=== PATIENT | female | born 1960 | race African-American/Black ===

== ENCOUNTER 2019-01-08 08:32 | Emergency (ER) | payer OTHER ==
[~2019-01-08] VITALS: Ht 170.2 cm; Wt 95.3 kg
[~2019-01-08 08:32] MED LIST: AMLO10TA8 PO; ASPI-630 PO; ATOR40TA PO; CICL6.6S3 TP; ISOS30TA4 PO; LOSA1TAB22 PO; METO25TA2 PO; PREG100C PO
[2019-01-08 08:54] LABS: BASO % 1 % (0-3); EOS # 0.3 x10^3/uL (0.0-0.7); EOS % 5 % (0-3); HEMATOCRIT 35.9 % (36.0-47.0); HEMOGLOBIN 11.2 g/dL (12.0-15.5); LYMPH # 1.9 x10^3/uL (1.0-4.8); LYMPH % 33 % (24-48); MEAN CORPUSCULAR HEMOGLOBIN 21 pg (25-35); MEAN CORPUSCULAR HGB CONC 31 g/dL (31-37); MEAN CORPUSCULAR VOLUME 66 fL (79-100); MONO # 0.6 x10^3/uL (0.0-1.1); MONO % 11 % (0-9); NEUT % 50 % (31-73); PLATELET COUNT 245 x10^3/uL (140-400); RED BLOOD COUNT 5.47 x10^6/uL (3.50-5.40); RED CELL DISTRIBUTION WIDTH 18.6 % (11.5-14.5); WHITE BLOOD COUNT 5.9 x10^3/uL (4.0-11.0)
[2019-01-08] MEDS ORDERED: NITROGLYCERIN SUBLINGUAL 0.4 MG BOTTLE OF 25. SL PRN ×2 (09:00→10:00)
[2019-01-08 09:01] LABS: CALCIUM 9.5 mg/dL (8.5-10.1); GFR 68.7; POTASSIUM 3.7 mmol/L (3.5-5.1)
[2019-01-08 09:07] LABS: ALBUMIN 3.9 g/dL (3.4-5.0); TOTAL BILIRUBIN 0.3 mg/dL (0.2-1.0); TOTAL PROTEIN 7.9 g/dL (6.4-8.2)
--- NOTE | 2019-01-08 09:17 | RAD ---
Exam performed: One view chest. Indication: Chest pain since this morning Date of Service: 01/08/2019 8:36 AM Comparison: CT angiogram chest from December 20, 2018. Single AP upright portable view chest findings: Cardiomediastinal silhouette is enlarged, however stable. No acute infiltrates, effusion or pneumothorax is detected. The bony structures are normal. Impression: Stable cardiomegaly No acute pulmonary findings detected. Electronically signed by: Nikki Savage MD (01/08/2019 9:14 AM) [facility]
[2019-01-08 09:19] LABS: PLT ESTIMATE ADEQUATE (ADEQUATE)
[2019-01-08 09:20] LABS: ANISOCYTOSIS MOD; HYPOCHROMIA MOD; POIKILOCYTOSIS SLIGHT; POLYCHROMASIA OCCASIONAL
[2019-01-08 09:21] LABS: MICROCYTOSIS MOD; OVALOCYTES FEW
[2019-01-08] MEDS ORDERED: KETOROLAC 15 MG/ML VIAL. IV ONE (10:00)
[2019-01-08] MEDS ORDERED: LORazepam 0.5 MG TABLET PO ONE (10:45)
[2019-01-08] MEDS ORDERED: ONDANSETRON ODT 4 MG TAB.RAPDIS. PO ONE (11:15)
[2019-01-08] MEDS ORDERED: ISOS60TA2 PO (11:47)
--- NOTE | 2019-01-08 11:48 | PHYS DOC ---
Past Medical History Past Medical History: Cancer, Hypertension, [place] Additional Past Medical Histor: heart cath used right wrist. Past Surgical History: , Hysterectomy Additional Past Surgical Histo: R breast lumpectomy [place] 2005. Alcohol Use: Occasionally Drug Use: None Adult General Chief Complaint Chief Complaint: CHEST PAIN HPI HPI Patient is a 58 year old [place] female with history of CAD with heart catheterization 2 weeks ago revealing single-vessel coronary disease with chronic total occlusion of right coronary artery presents with atypical chest pain. No interventions were undertaken and medical management was recommended. Current chest pain is left-sided described a pressure-like and worse with deep breathing. Patient took long-acting nitroglycerin and this morning with some improvement of symptoms. Patient also reports feeling anxious. Blood pressure noted be elevated. Patient did take blood pressure medication as well this morning. Pain is nonradiating. It is not associated nausea shortness of breath or sweats. No abdominal pain. No leg pain or swelling. No other acute symptoms or complaints. [] Review of Systems Review of Systems Review of symptoms as per history of present illness. All other review symptoms are negative. All other systems were reviewed and found to be within normal limits, except as documented in this note. Current Medications Current Medications Current Medications Medications (Trade) Dose Ordered Sig/Hank Start Time Stop Time Status Last Admin Dose Admin Ketorolac Tromethamine (Toradol 15mg Vial) 30 mg 1X ONCE 01/08/19 10:00 01/08/19 10:01 DC 01/08/19 10:17 30 MG Lorazepam (Ativan) 1 mg 1X ONCE 01/08/19 10:45 01/08/19 10:48 DC 01/08/19 11:28 1 MG Nitroglycerin (Nitrostat) 0.4 mg PRN Q5MIN PRN 01/08/19 10:00 Ondansetron HCl (Zofran Odt) 4 mg 1X ONCE 01/08/19 11:15 01/08/19 11:26 DC Allergies Allergies Allergies Coded Allergies Type Severity Reaction Last Updated Verified Penicillins Allergy Intermediate Hives 12/21/18 Yes Physical Exam Physical Exam Constitutional: Well developed, well nourished, no acute distress, non-toxic appearance. [] HENT: Normocephalic, atraumatic, bilateral external ears normal, oropharynx moist, nose normal. [] Eyes: PERRLA, EOMI. [] Neck: Normal range of motion, no tenderness. [] Cardiovascular:Heart rate regular rhythm. [] Lungs & Thorax: Bilateral breath sounds clear to auscultation. [] Abdomen: Bowel sounds normal, soft, no tenderness. [] Skin: Warm, dry, no erythema. [] Back: No tenderness. [] Extremities: No tenderness, no edema. [] Neurologic: Alert and oriented X 3, normal motor function, normal sensory function, no focal deficits noted. [] Psychologic: Affect anxious, judgement normal, mood normal. [] Current Patient Data Vital Signs Vital Signs Date Time Temp Pulse Resp B/P (MAP) Pulse Ox O2 Delivery O2 Flow Rate FiO2 01/08/19 09:05 80 145/83 01/08/19 09:05 24 97 Room Air 01/08/19 08:32 98.4 98.4 Lab Values Laboratory Tests Test 01/08/19 08:40 01/08/19 10:35 White Blood Count 5.9 x10^3/uL (4.0-11.0) Red Blood Count 5.47 x10^6/uL (3.50-5.40) H Hemoglobin 11.2 g/dL (12.0-15.5) L Hematocrit 35.9 % (36.0-47.0) L Mean Corpuscular Volume 66 fL (79-100) L Mean Corpuscular Hemoglobin 21 pg (25-35) L Mean Corpuscular Hemoglobin Concent 31 g/dL (31-37) Red Cell Distribution Width 18.6 % (11.5-14.5) H Platelet Count 245 x10^3/uL (140-400) Neutrophils (%) (Auto) 50 % (31-73) Lymphocytes (%) (Auto) 33 % (24-48) Monocytes (%) (Auto) 11 % (0-9) H Eosinophils (%) (Auto) 5 % (0-3) H Basophils (%) (Auto) 1 % (0-3) Neutrophils # (Auto) 3.0 x10^3uL (1.8-7.7) Lymphocytes # (Auto) 1.9 x10^3/uL (1.0-4.8) Monocytes # (Auto) 0.6 x10^3/uL (0.0-1.1) Eosinophils # (Auto) 0.3 x10^3/uL (0.0-0.7) Basophils # (Auto) 0.0 x10^3/uL (0.0-0.2) Platelet Estimate Adequate (ADEQUATE) Polychromasia Occasional Hypochromasia Mod Poikilocytosis Slight Anisocytosis Mod Microcytosis Mod Ovalocytes Few Sodium Level 138 mmol/L (136-145) Potassium Level 3.7 mmol/L (3.5-5.1) Chloride Level 101 mmol/L (98-107) Carbon Dioxide Level 30 mmol/L (21-32) Anion Gap 7 (6-14) Blood Urea Nitrogen 20 mg/dL (7-20) Creatinine 1.0 mg/dL (0.6-1.0) Estimated GFR (Cockcroft-Gault) 68.7 BUN/Creatinine Ratio 20 (6-20) Glucose Level 303 mg/dL (70-99) H Calcium Level 9.5 mg/dL (8.5-10.1) Total Bilirubin 0.3 mg/dL (0.2-1.0) Aspartate Amino Transferase (AST) 25 U/L (15-37) Alanine Aminotransferase (ALT) 28 U/L (14-59) Alkaline Phosphatase 61 U/L (46-116) Troponin I Quantitative 0.075 ng/mL (0.000-0.055) 0.075 ng/mL (0.000-0.055) Total Protein 7.9 g/dL (6.4-8.2) Albumin 3.9 g/dL (3.4-5.0) Albumin/Globulin Ratio 1.0 (1.0-1.7) Laboratory Tests 01/08/19 08:40 Laboratory Tests 01/08/19 08:40 EKG EKG [EKG: reviewed] Radiology/Procedures Radiology/Procedures [CXR: No acute cardiopulmonary disease on radiologist review] Course & Med Decision Making Course & Med Decision Making Pertinent Labs and Imaging studies reviewed. (See chart for details) [Atypical chest pain with recent heart catheterization chronic stable single- vessel coronary disease. EKG lab and imaging studies performed. Despite 4 hours of continuous chest pain, troponin remains minimally elevated and unchanged on repeat to her testing. Chest pain resolved with Ativan. Case discussed with Dr. Aguirre or on-call for cardiology. Recommendations are discharged home, increase isosorbide and office follow-up later this week. Recommendations discussed in detail with patient is comfortable with discharge plan. Return precautions reviewed.] Dragon Disclaimer Dragon Disclaimer This electronic medical record was generated, in whole or in part, using a voice recognition dictation system. Departure Departure Impression: Primary Impression: Chest pain Additional Impressions: Hypertension CAD (coronary artery disease) Disposition: HOME, SELF-CARE Condition: IMPROVED Referrals: DANNY TINAJERO JR, MD (PCP) Patient Instructions: Chest Pain (Nonspecific), [id number], Hypertension, [id number] Additional Instructions: Please increase isosorbide to 60mg daily and continue all other home medications as scheduled. Follow-up with Dr. Aguirre in the office later this week. Return to the ED if new or worsening symptoms. Scripts Isosorbide Mononitrate (ISOSORBIDE MONONITRATE ER) 60 Mg Tab.er.24h 1 TAB PO DAILY, #30 TAB 5 Refills Prov: EZRA DAVIS DO 01/08/19 Problem Qualifiers EZRA DAVIS DO Jan 08, 2019 11:48
[2019-01-08 12:00] VITALS: BP 143/88
--- NOTE | 2019-01-09 08:28 | EKG ---
[facility] [address] [place] [address] Test Date: 2019-01-08 Test Time: 08:39:35 Pat Name: JAIME PINON Department: Patient ID: 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
== END 2019-01-08 12:05 | disposition home or self-care (01) ==
LOC: ER 08:32
DX: R07.89 Other chest pain (principal); I10 Essential (primary) hypertension; I25.10 Atherosclerotic heart disease of native coronary artery without angina pectoris; I25.2 Old myocardial infarction; Z95.818 Presence of other cardiac implants and grafts; Z88.0 Allergy status to penicillin
CPT/HCPCS: 36415; 71045; 80053; 84484; 85025; 93005; 96374; 99285; J1885; Q0162

== ENCOUNTER 2019-03-30 04:15 | Observation (INO) | payer OTHER ==
[~2019-03-30] VITALS: Ht 167.6 cm; Wt 92.1 kg
[~2019-03-30 04:15] MED LIST changes: +ISOS60TA2 PO
[2019-03-30 04:36] LABS: BASO % 1 % (0-3); EOS # 0.6 x10^3/uL (0.0-0.7); EOS % 12 % (0-3); HEMATOCRIT 33.4 % (36.0-47.0); HEMOGLOBIN 10.6 g/dL (12.0-15.5); LYMPH # 1.7 x10^3/uL (1.0-4.8); LYMPH % 32 % (24-48); MEAN CORPUSCULAR HEMOGLOBIN 21 pg (25-35); MEAN CORPUSCULAR HGB CONC 32 g/dL (31-37); MEAN CORPUSCULAR VOLUME 65 fL (79-100); MONO # 0.7 x10^3/uL (0.0-1.1); MONO % 13 % (0-9); NEUT # 2.2 x10^3/uL (1.8-7.7); NEUT % 43 % (31-73); PLATELET COUNT 248 x10^3/uL (140-400); RED BLOOD COUNT 5.16 x10^6/uL (3.50-5.40); RED CELL DISTRIBUTION WIDTH 20.8 % (11.5-14.5); WHITE BLOOD COUNT 5.2 x10^3/uL (4.0-11.0)
--- NOTE | 2019-03-30 04:36 | PHYS DOC ---
Past Medical History Past Medical History: Cancer, Hypertension, [place] Additional Past Medical Histor: heart cath used right wrist. (NATE DICKINSON MD) Past Surgical History: , Hysterectomy Additional Past Surgical Histo: R breast lumpectomy [place] 2005. (NATE DICKINSON MD) Alcohol Use: Occasionally Drug Use: None (NATE DICKINSON MD) Adult General Chief Complaint Chief Complaint: CHEST PAIN HPI HPI Patient is a 59 year ol female history of hypertension coronary artery disease status post a catheter in December 2018 that showed a chronic total occlusion of the right coronary artery with collaterals noted no intervention was performed present with chest discomfort described as sharp she says it is "behind my heart" radiates over to the side but not to the back not to the arm no shortness of breath no nausea or vomiting noted. Symptoms are moderate in nature received nitroglycerin with some improvement in the symptoms but they are still present symptoms present for approximately one hour. No leg pain no abdominal pain (NATE DICKINSON MD) Review of Systems Review of Systems Constitutional: Denies fever or chills [] Eyes: Denies change in visual acuity, redness, or eye pain [] HENT: Denies nasal congestion or sore throat [] GI: Denies abdominal pain, nausea, vomiting, bloody stools or diarrhea [] Neurologic: Denies headache, focal weakness or sensory changes [] Endocrine: Denies polyuria or polydipsia [] All other systems were reviewed and found to be within normal limits, except as documented in this note. (NATE DICKINSON MD) Current Medications Current Medications Current Medications Medications (Trade) Dose Ordered Sig/Hank Start Time Stop Time Status Last Admin Dose Admin Aspirin (Children'S Aspirin) 324 mg 1X ONCE 03/30/19 05:00 03/30/19 05:01 DC Nitroglycerin (Nitrostat) 0.4 mg PRN Q5MIN PRN 03/30/19 04:45 03/30/19 05:06 0.4 MG Potassium Chloride (Klor-Con) 40 meq 1X ONCE 03/30/19 06:30 03/30/19 06:31 DC 03/30/19 06:16 40 MEQ (ARTIS FERNANDEZ MD) Allergies Allergies Allergies Coded Allergies Type Severity Reaction Last Updated Verified Penicillins Allergy Intermediate Hives 12/21/18 Yes (ARTIS FERNANDEZ MD) Physical Exam Physical Exam Constitutional: Well developed, well nourished, no acute distress, non-toxic appearance. [] HENT: Normocephalic, atraumatic, bilateral external ears normal, oropharynx moist, no oral exudates, nose normal. [] Eyes: PERRLA, EOMI, conjunctiva normal, no discharge. [] Neck: Normal range of motion, no tenderness, supple, no stridor. [] Cardiovascular:Heart rate regular rhythm, no murmur [] Lungs & Thorax: Bilateral breath sounds clear to auscultation [] Abdomen: Bowel sounds normal, soft, no tenderness, no masses, no pulsatile masses. [] Skin: Warm, dry, no erythema, no rash. [] Back: No tenderness, no CVA tenderness. [] Extremities: No tenderness, no cyanosis, no clubbing, ROM intact, no edema. [] Neurologic: Alert and oriented X 3, normal motor function, normal sensory function, no focal deficits noted. [] Psychologic: Affect normal, judgement normal, mood normal. [] (NATE DICKINSON MD) Current Patient Data Vital Signs Vital Signs Date Time Temp Pulse Resp B/P (MAP) Pulse Ox O2 Delivery O2 Flow Rate FiO2 03/30/19 07:12 70 23 156/92 (113) 93 Room Air 03/30/19 04:36 98.3 98.3 (ARTIS FERNANDEZ MD) Lab Values Laboratory Tests Test 03/30/19 04:25 03/30/19 07:10 White Blood Count 5.2 x10^3/uL (4.0-11.0) Red Blood Count 5.16 x10^6/uL (3.50-5.40) Hemoglobin 10.6 g/dL (12.0-15.5) L Hematocrit 33.4 % (36.0-47.0) L Mean Corpuscular Volume 65 fL (79-100) L Mean Corpuscular Hemoglobin 21 pg (25-35) L Mean Corpuscular Hemoglobin Concent 32 g/dL (31-37) Red Cell Distribution Width 20.8 % (11.5-14.5) H Platelet Count 248 x10^3/uL (140-400) Neutrophils (%) (Auto) 43 % (31-73) Lymphocytes (%) (Auto) 32 % (24-48) Monocytes (%) (Auto) 13 % (0-9) H Eosinophils (%) (Auto) 12 % (0-3) H Basophils (%) (Auto) 1 % (0-3) Neutrophils # (Auto) 2.2 x10^3/uL (1.8-7.7) Lymphocytes # (Auto) 1.7 x10^3/uL (1.0-4.8) Monocytes # (Auto) 0.7 x10^3/uL (0.0-1.1) Eosinophils # (Auto) 0.6 x10^3/uL (0.0-0.7) Basophils # (Auto) 0.0 x10^3/uL (0.0-0.2) Platelet Estimate Adequate (ADEQUATE) Hypochromasia Marked Anisocytosis Mod Microcytosis Mod Ovalocytes Occ Sodium Level 144 mmol/L (136-145) Potassium Level 3.3 mmol/L (3.5-5.1) L Chloride Level 107 mmol/L (98-107) Carbon Dioxide Level 30 mmol/L (21-32) Anion Gap 7 (6-14) Blood Urea Nitrogen 23 mg/dL (7-20) H Creatinine 1.1 mg/dL (0.6-1.0) H Estimated GFR (Cockcroft-Gault) 61.3 BUN/Creatinine Ratio 21 (6-20) H Glucose Level 169 mg/dL (70-99) H Calcium Level 9.6 mg/dL (8.5-10.1) Total Bilirubin 0.3 mg/dL (0.2-1.0) Aspartate Amino Transferase (AST) 23 U/L (15-37) Alanine Aminotransferase (ALT) 20 U/L (14-59) Alkaline Phosphatase 64 U/L (46-116) Troponin I Quantitative 0.017 ng/mL (0.000-0.055) < 0.017 ng/mL (0.000-0.055) Total Protein 7.6 g/dL (6.4-8.2) Albumin 3.7 g/dL (3.4-5.0) Albumin/Globulin Ratio 0.9 (1.0-1.7) L Laboratory Tests 03/30/19 04:25 Laboratory Tests 03/30/19 04:25 (ATRIS FERNANDEZ MD) Lab Values Laboratory Tests Test 03/30/19 04:25 03/30/19 07:10 White Blood Count 5.2 x10^3/uL (4.0-11.0) Red Blood Count 5.16 x10^6/uL (3.50-5.40) Hemoglobin 10.6 g/dL (12.0-15.5) L Hematocrit 33.4 % (36.0-47.0) L Mean Corpuscular Volume 65 fL (79-100) L Mean Corpuscular Hemoglobin 21 pg (25-35) L Mean Corpuscular Hemoglobin Concent 32 g/dL (31-37) Red Cell Distribution Width 20.8 % (11.5-14.5) H Platelet Count 248 x10^3/uL (140-400) Neutrophils (%) (Auto) 43 % (31-73) Lymphocytes (%) (Auto) 32 % (24-48) Monocytes (%) (Auto) 13 % (0-9) H Eosinophils (%) (Auto) 12 % (0-3) H Basophils (%) (Auto) 1 % (0-3) Neutrophils # (Auto) 2.2 x10^3/uL (1.8-7.7) Lymphocytes # (Auto) 1.7 x10^3/uL (1.0-4.8) Monocytes # (Auto) 0.7 x10^3/uL (0.0-1.1) Eosinophils # (Auto) 0.6 x10^3/uL (0.0-0.7) Basophils # (Auto) 0.0 x10^3/uL (0.0-0.2) Platelet Estimate Adequate (ADEQUATE) Hypochromasia Marked Anisocytosis Mod Microcytosis Mod Ovalocytes Occ D-Dimer (Priya) 0.83 ug/mlFEU (0.00-0.50) H Sodium Level 144 mmol/L (136-145) Potassium Level 3.3 mmol/L (3.5-5.1) L Chloride Level 107 mmol/L (98-107) Carbon Dioxide Level 30 mmol/L (21-32) Anion Gap 7 (6-14) Blood Urea Nitrogen 23 mg/dL (7-20) H Creatinine 1.1 mg/dL (0.6-1.0) H Estimated GFR (Cockcroft-Gault) 61.3 BUN/Creatinine Ratio 21 (6-20) H Glucose Level 169 mg/dL (70-99) H Calcium Level 9.6 mg/dL (8.5-10.1) Total Bilirubin 0.3 mg/dL (0.2-1.0) Aspartate Amino Transferase (AST) 23 U/L (15-37) Alanine Aminotransferase (ALT) 20 U/L (14-59) Alkaline Phosphatase 64 U/L (46-116) Troponin I Quantitative 0.017 ng/mL (0.000-0.055) < 0.017 ng/mL (0.000-0.055) Total Protein 7.6 g/dL (6.4-8.2) Albumin 3.7 g/dL (3.4-5.0) Albumin/Globulin Ratio 0.9 (1.0-1.7) L Laboratory Tests 03/30/19 04:25 Laboratory Tests 03/30/19 04:25 (NATE DICKINSON MD) EKG EKG []EKG shows a sinus rhythm rate of [address] elevation in lead 3 only but there are also Q waves in that lead and this morphology is very similar to January 08, [address] elevation was noted PVC noted (NATE DICKINSON MD) Radiology/Procedures Radiology/Procedures [] (NATE DICKINSON MD) Radiology/Procedures PROCEDURE: PORTABLE CHEST 1V EXAM: CHEST 1 VIEW History: Chest pain COMPARISON: None available. TECHNIQUE: Single portable radiograph of the chest FINDINGS: The cardiac silhouette is unremarkable. Minimal bibasilar lung airspace opacities likely atelectasis or infiltrates. The costophrenic sulci are clear and well demarcated. IMPRESSION: Minimal bibasilar lung airspace opacities likely atelectasis or infiltrates. (ARTIS FERNANDEZ MD) Course & Med Decision Making Course & Med Decision Making Pertinent Labs and Imaging studies reviewed. (See chart for details) []Well-appearing 59-year-old female with a recent catheterization that showed a chronic total occlusion of the right coronary with no intervention presenting with chest pain somewhat atypical component in nature at this point plan for serial troponins nitroglycerin aspirin as needed and go from there. afte her nitro pt feeling much better, reproducible sypmtoms on examination of chest wall. plan for second troponin at 7 am, s/o mckenzie (NATE DICKINSON MD) Course & Med Decision Making 8:10 AM: The patient's condition remains stable. I discussed test results with the patient in detail, along with a local clinical suspicion for cardiac etiolo gy to her symptoms, however the patient states she feels too ill and is still having chest pain (which has been waxing and waning since she arrived in the emergency department), to go home. Thus, I spoke with the hospitalist, who graciously agreed to admit the patient for further evaluation. (ARTIS FERNANDEZ MD) Dragon Disclaimer Dragon Disclaimer This electronic medical record was generated, in whole or in part, using a voice recognition dictation system. (NATE DICKINSON MD) Departure Departure Impression: Primary Impression: Chest pain Additional Impression: CAD (coronary artery disease) Disposition: ADMITTED INPATIENT Admitting Physician: HIMS (ARTIS FERNANDEZ MD) Condition: STABLE Referrals: CASEY SALINAS DO (PCP) Problem Qualifiers NATE DICKINSON MD Mar 30, 2019 04:36 ARTIS FERNANDEZ MD Mar 30, 2019 06:09
[2019-03-30 04:44] LABS: CALCIUM 9.6 mg/dL (8.5-10.1); CREATININE 1.1 mg/dL (0.6-1.0); GFR 61.3; POTASSIUM 3.3 mmol/L (3.5-5.1)
[2019-03-30 04:50] LABS: ALBUMIN 3.7 g/dL (3.4-5.0); ALBUMIN/GLOBULIN RATIO 0.9 (1.0-1.7); TOTAL BILIRUBIN 0.3 mg/dL (0.2-1.0); TOTAL PROTEIN 7.6 g/dL (6.4-8.2)
[2019-03-30] MEDS: NITROGLYCERIN SUBLINGUAL 0.4 MG BOTTLE OF 25. SL PRN ×3 (04:50→05:06)
--- NOTE | 2019-03-30 04:59 | RAD ---
EXAM: CHEST 1 VIEW History: Chest pain COMPARISON: None available. TECHNIQUE: Single portable radiograph of the chest FINDINGS: The cardiac silhouette is unremarkable. Minimal bibasilar lung airspace opacities likely atelectasis or infiltrates. The costophrenic sulci are clear and well demarcated. IMPRESSION: Minimal bibasilar lung airspace opacities likely atelectasis or infiltrates. Electronically signed by: Jacobo Anderson MD (03/30/2019 4:57 AM) [facility]
[2019-03-30] MEDS ORDERED: ASPIRIN CHEWABLE 81 MG TABLET. PO ONE (05:00)
[2019-03-30] MEDS ORDERED: POTASSIUM CHLORIDE 20 MEQ TABLET.ER. PO ONE ×2 (06:30→09:00)
[2019-03-30 07:35] LABS: HYPOCHROMIA MARKED; PLT ESTIMATE ADEQUATE (ADEQUATE)
[2019-03-30 07:36] LABS: ANISOCYTOSIS MOD; MICROCYTOSIS MOD
[2019-03-30 07:38] LABS: OVALOCYTES OCC
--- NOTE | 2019-03-30 08:11 | EKG ---
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
--- NOTE | 2019-03-30 08:11 | EKG ---
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
--- NOTE | 2019-03-30 08:53 | PDOC1 ---
History and Physical Date of Admission Date of Admission DATE: 03/30/19 TIME: 08:49 Identification/Chief Complaint Chief Complaint left sided CP at rest Source Source: Caregiver, Chart review, Patient History of Present Illness History of Present Illness 59 AA female, known pt dr hawkins, has CAD, maintained on the right meds, CP left sided at rest, no resolve, better with time and maybe meds, NO radiation to jaw, shoulder etc, no diaphoresis or presyncopal sxs, She claims similar pain to her first heart attack. Sleepy when i saw her at ER, EKG and trops x 2 reassuring. ER wanted to dc home but pt did not feel she could go home bec of CP, [facility] December and January cardiac work up, CLaims compliance to meds, VS good, LAbs just mild hypokal 3,3, the rest ok Admitted oBS with consult to cards Past Medical History Cardiovascular: CAD, HTN Pulmonary: No pertinent hx CENTRAL NERVOUS SYSTEM: Periperal neuropathy GI: GERD Heme/Onc: No pertinent hx, Cancer Hepatobiliary: No pertinent hx Psych: No pertinent hx Musculoskeletal: Osteoarthritis Rheumatologic: No pertinent hx Infectious disease: No pertinent hx Renal/: No pertinent hx Endocrine: Diabetes Past Surgical History Past Surgical History: , Hysterectomy, Other Family History Family History: High Cholestrol, Hypertension Social History Smoke: No ALCOHOL: none Drugs: None Current Problem List Problem List Problems Medical Problems: (1) Chest pain Status: Acute Current Medications Current Medications Current Medications Aspirin (Children'S Aspirin) 324 mg 1X ONCE PO ; Start 03/30/19 at 05:00; Stop 03/30/19 at 05:01; Status DC Nitroglycerin (Nitrostat) 0.4 mg PRN Q5MIN PRN SL CHEST PAIN Last administered on 03/30/19at 05:06; Start 03/30/19 at 04:45 Potassium Chloride (Klor-Con) 40 meq 1X ONCE PO Last administered on 03/30/19at 06:16; Start 03/30/19 at 06:30; Stop 03/30/19 at 06:31; Status DC Amlodipine Besylate (Norvasc) 10 mg DAILY PO ; Start 03/30/19 at 09:00; Status UNV Aspirin (Children'S Aspirin) 81 mg DAILY PO ; Start 03/30/19 at 09:00; Status UNV Atorvastatin Calcium (Lipitor) 40 mg QHS PO ; Start 03/30/19 at 21:00; Status UNV Isosorbide Mononitrate (Imdur) 30 mg DAILY PO ; Start 03/30/19 at 09:00; Status UNV Metoprolol Succinate (Toprol Xl) 25 mg DAILY PO ; Start 03/30/19 at 09:00; Status UNV Non-Formulary Medication (Ciclopirox ) 1 kwasi BID TP ; Start 03/30/19 at 09:00; Status UNV Non-Formulary Medication (Isosorbide Mononitrate (Isosorbide Mononitrate Er)) 1 tab DAILY PO ; Start 03/30/19 at 09:00; Status UNV Non-Formulary Medication (Losartan/ Hydrochlorothiazide (Losartan-Hctz 100-25 Mg Tab)) 1 tab DAILY PO ; Start 03/30/19 at 09:00; Status UNV Non-Formulary Medication (Pregabalin (Lyrica)) 1 cap BID PO ; Start 03/30/19 at 09:00; Status UNV Active Scripts Active Isosorbide Mononitrate Er (Isosorbide Mononitrate) 60 Mg Tab.er.24h 1 Tab PO DAILY Lipitor (Atorvastatin Calcium) 40 Mg Tablet 1 Tab PO QHS Isosorbide Mononitrate Er (Isosorbide Mononitrate) 30 Mg Tab.er.24h 1 Tab PO DAILY Reported Aspirin 81 Mg Tab.chew 1 Tab PO DAILY Ciclopirox 6.6 Ml Solution 1 Kwasi TP BID Toprol Xl (Metoprolol Succinate) 25 Mg Tab.er.24h 1 Tab PO DAILY Amlodipine Besylate 10 Mg Tablet 10 Mg PO DAILY Lyrica (Pregabalin) 100 Mg Capsule 1 Cap PO BID Losartan-Hctz 100-25 Mg Tab (Losartan/Hydrochlorothiazide) 1 Each Tablet 1 Tab PO DAILY Allergies Allergies: Coded Allergies: Penicillins (Verified Allergy, Intermediate, Hives, 12/21/18) ROS Review of System as per hPI, rest 14 pt neg Physical Exam General: Oriented X3, Cooperative, No acute distress HEENT: Atraumatic, PERRLA, EOMI Lungs: Clear to auscultation, Normal air movement Heart: S1S2, RRR, no thrills, no rubs, no gallops Cardiovascular: S1, S2 Breasts: Normal, Rt breast nml w/o mass, Lt breast nml w/o mass, Nipples normal Abdomen: Normal bowel sounds, Soft, No tenderness, No hepatosplenomegaly, No masses Rectal Exam: not examined PELVIC: Nml ext genitalia Extremities: No clubbing, No cyanosis, No edema, Normal pulses, No tenderness/swelling Skin: No rashes, No breakdown, No significant lesion Neuro: Normal gait, Normal speech, Strength at 5/5 X4 ext, Normal tone, Sensation intact, Cranial nerves 3-12 NL, Reflexes 2+ Psych/Mental Status: Mental status NL, Mood NL Vitals Vitals Vital Signs Date Time Temp Pulse Resp B/P (MAP) Pulse Ox O2 Delivery O2 Flow Rate FiO2 03/30/19 07:12 70 23 156/92 (113) 93 Room Air 03/30/19 04:36 98.3 98.3 Labs Labs Laboratory Tests Test 03/30/19 04:25 03/30/19 07:10 White Blood Count 5.2 x10^3/uL (4.0-11.0) Red Blood Count 5.16 x10^6/uL (3.50-5.40) Hemoglobin 10.6 g/dL (12.0-15.5) Hematocrit 33.4 % (36.0-47.0) Mean Corpuscular Volume 65 fL (79-100) Mean Corpuscular Hemoglobin 21 pg (25-35) Mean Corpuscular Hemoglobin Concent 32 g/dL (31-37) Red Cell Distribution Width 20.8 % (11.5-14.5) Platelet Count 248 x10^3/uL (140-400) Neutrophils (%) (Auto) 43 % (31-73) Lymphocytes (%) (Auto) 32 % (24-48) Monocytes (%) (Auto) 13 % (0-9) Eosinophils (%) (Auto) 12 % (0-3) Basophils (%) (Auto) 1 % (0-3) Neutrophils # (Auto) 2.2 x10^3/uL (1.8-7.7) Lymphocytes # (Auto) 1.7 x10^3/uL (1.0-4.8) Monocytes # (Auto) 0.7 x10^3/uL (0.0-1.1) Eosinophils # (Auto) 0.6 x10^3/uL (0.0-0.7) Basophils # (Auto) 0.0 x10^3/uL (0.0-0.2) Platelet Estimate Adequate (ADEQUATE) Hypochromasia Marked Anisocytosis Mod Microcytosis Mod Ovalocytes Occ Sodium Level 144 mmol/L (136-145) Potassium Level 3.3 mmol/L (3.5-5.1) Chloride Level 107 mmol/L (98-107) Carbon Dioxide Level 30 mmol/L (21-32) Anion Gap 7 (6-14) Blood Urea Nitrogen 23 mg/dL (7-20) Creatinine 1.1 mg/dL (0.6-1.0) Estimated GFR (Cockcroft-Gault) 61.3 BUN/Creatinine Ratio 21 (6-20) Glucose Level 169 mg/dL (70-99) Calcium Level 9.6 mg/dL (8.5-10.1) Total Bilirubin 0.3 mg/dL (0.2-1.0) Aspartate Amino Transf (AST/SGOT) 23 U/L (15-37) Alanine Aminotransferase (ALT/SGPT) 20 U/L (14-59) Alkaline Phosphatase 64 U/L (46-116) Troponin I Quantitative 0.017 ng/mL (0.000-0.055) < 0.017 ng/mL (0.000-0.055) Total Protein 7.6 g/dL (6.4-8.2) Albumin 3.7 g/dL (3.4-5.0) Albumin/Globulin Ratio 0.9 (1.0-1.7) Laboratory Tests Test 03/30/19 04:25 03/30/19 07:10 White Blood Count 5.2 x10^3/uL (4.0-11.0) Red Blood Count 5.16 x10^6/uL (3.50-5.40) Hemoglobin 10.6 g/dL (12.0-15.5) Hematocrit 33.4 % (36.0-47.0) Mean Corpuscular Volume 65 fL (79-100) Mean Corpuscular Hemoglobin 21 pg (25-35) Mean Corpuscular Hemoglobin Concent 32 g/dL (31-37) Red Cell Distribution Width 20.8 % (11.5-14.5) Platelet Count 248 x10^3/uL (140-400) Neutrophils (%) (Auto) 43 % (31-73) Lymphocytes (%) (Auto) 32 % (24-48) Monocytes (%) (Auto) 13 % (0-9) Eosinophils (%) (Auto) 12 % (0-3) Basophils (%) (Auto) 1 % (0-3) Neutrophils # (Auto) 2.2 x10^3/uL (1.8-7.7) Lymphocytes # (Auto) 1.7 x10^3/uL (1.0-4.8) Monocytes # (Auto) 0.7 x10^3/uL (0.0-1.1) Eosinophils # (Auto) 0.6 x10^3/uL (0.0-0.7) Basophils # (Auto) 0.0 x10^3/uL (0.0-0.2) Platelet Estimate Adequate (ADEQUATE) Hypochromasia Marked Anisocytosis Mod Microcytosis Mod Ovalocytes Occ Sodium Level 144 mmol/L (136-145) Potassium Level 3.3 mmol/L (3.5-5.1) Chloride Level 107 mmol/L (98-107) Carbon Dioxide Level 30 mmol/L (21-32) Anion Gap 7 (6-14) Blood Urea Nitrogen 23 mg/dL (7-20) Creatinine 1.1 mg/dL (0.6-1.0) Estimated GFR (Cockcroft-Gault) 61.3 BUN/Creatinine Ratio 21 (6-20) Glucose Level 169 mg/dL (70-99) Calcium Level 9.6 mg/dL (8.5-10.1) Total Bilirubin 0.3 mg/dL (0.2-1.0) Aspartate Amino Transf (AST/SGOT) 23 U/L (15-37) Alanine Aminotransferase (ALT/SGPT) 20 U/L (14-59) Alkaline Phosphatase 64 U/L (46-116) Troponin I Quantitative 0.017 ng/mL (0.000-0.055) < 0.017 ng/mL (0.000-0.055) Total Protein 7.6 g/dL (6.4-8.2) Albumin 3.7 g/dL (3.4-5.0) Albumin/Globulin Ratio 0.9 (1.0-1.7) VTE Prophylaxis Ordered VTE Prophylaxis Devices: Yes VTE Pharmacological Prophylaxi: Yes Assessment/Plan Assessment/Plan CP in an adult at rest with neg trps x 2 and reassuring EKG HX hTN CAD, dyslipidemia - on meds- CPM MIld hypokal PLAN: OBS, cards consult CARdiac diet has been at ER level replace K PO x 1 full code seen at ER w JEFFREY Boswell MD Mar 30, 2019 08:53
[2019-03-30] MEDS ORDERED: ISOSORBIDE MONONITRATE PO SCH (09:00)
[2019-03-30] MEDS: CICLOPIROX TP SCH ×2 (09:00→21:00)
[2019-03-30] MEDS ORDERED: MORPHINE SULFATE 2 MG/ML VIAL. IV PRN (09:00)
[2019-03-30] MEDS ORDERED: NITROGLYCERIN SUBLINGUAL 0.4 MG BOTTLE OF 25. SL PRN (09:00)
[2019-03-30] MEDS: METOPROLOL SUCC 24HR ER 25 MG TAB.ER.24H. PO SCH (09:22)
[2019-03-30] MEDS: ASPIRIN CHEWABLE 81 MG TABLET. PO SCH (09:22)
--- NOTE | 2019-03-30 12:23 | PDOC2 ---
LAINEY FRIAS BUILDING PERFORMANCE SPECIALIST 03/30/19 1223: CARDIAC CONSULT DATE OF CONSULT Date of Consult DATE: 03/30/19 TIME: 12:14 REASON FOR CONSULT Reason for Consult: Chest pain REFERRING PHYSICIAN Referring Physician: Jamin SOURCE Source: Chart review, Patient HISTORY OF PRESENT ILLNESS HISTORY OF PRESENT ILLNESS This is a pleasant 59 yo female admitted for complains of chest pain. This started after waking in the morning around 3 AM. This was sharp pain left chest and isolated underneath her left breast sometimes she get the same sharp pain to her right chest. She jus recently getting over bronchitis and was treated symptomatically. Reports that she has been having intractable coughing in the last few days still. Coughing hard enough sometimes that makes her vomit. Her pain is reproducible with coughing. No nausea or vomiting. No SOA per se only thing is she could not take a deep breath when she is hurting. She did go to [place] about 1 week ago but denies any leg swelling or pain. No palpitations. No recent injuries or falls. No fever or chills. Verbalized compliance on her medications. Prior to today. Denies any GANN or exertional CP. PAST MEDICAL HISTORY Past Medical History Cardiovascular: CAD, HTN Pulmonary: No pertinent hx CENTRAL NERVOUS SYSTEM: Peripheral neuropathy GI: GERD Heme/Onc: No pertinent hx, Cancer (breast) Hepatobiliary: No pertinent hx Psych: No pertinent hx Musculoskeletal: Osteoarthritis Rheumatologic: No pertinent hx Infectious disease: No pertinent hx ENT: No pertinent hx Renal/: No pertinent hx Endocrine: Diabetes (borderline) Dermatology: No pertinent hx PAST SURGICAL HISTORY Past Surgical History , Hysterectomy, Other (right breast lumpectomy) FAMILY HISTORY Family History: Hypertension SOCIAL HISTORY Social History Smoke: Quit (remotely) ALCOHOL: none Drugs: None Lives: with Family Smoke: Quit CURRENT MEDICATIONS CURRENT MEDICATIONS Current Medications Medications (Trade) Dose Ordered Sig/Hank Route PRN Reason Start Time Stop Time Status Last Admin Dose Admin Nitroglycerin (Nitrostat) 0.4 mg PRN Q5MIN PRN SL CHEST PAIN 03/30/19 04:45 03/30/19 09:36 DC 03/30/19 05:06 Potassium Chloride (Klor-Con) 40 meq 1X ONCE PO 03/30/19 06:30 03/30/19 06:31 DC 03/30/19 06:16 Aspirin (Children'S Aspirin) 81 mg DAILY PO 03/30/19 09:00 03/30/19 09:22 Metoprolol Succinate (Toprol Xl) 25 mg DAILY PO 03/30/19 09:00 03/30/19 09:22 ALLERGIES ALLERGIES: Coded Allergies: Penicillins (Verified Allergy, Intermediate, Hives, 12/21/18) ROS Review of System 14 point ROS evlauated with pertinent positives noted per HPI PHYSICAL EXAM General: Alert, Oriented X3, Cooperative, No acute distress HEENT: Mucous membr. moist/pink Lungs: Other (diminished bases) Heart: Regular rate, Normal S1, Normal S2 Abdomen: Soft, No tenderness Extremities: No cyanosis, No edema Skin: No breakdown, No significant lesion Neuro: Normal speech, Sensation intact Psych/Mental Status: Mental status NL, Mood NL MUSCULOSKELETAL: Osteoarthritic changes both hands VITALS/I&O VITALS/I&O: Vital Signs Date Time Temp Pulse Resp B/P (MAP) Pulse Ox O2 Delivery O2 Flow Rate FiO2 03/30/19 10:30 66 144/87 (106) 93 Room Air 03/30/19 09:18 20 03/30/19 04:36 98.3 98.3 LABS Lab: Laboratory Tests Test 03/30/19 04:25 03/30/19 07:10 03/30/19 11:05 White Blood Count 5.2 x10^3/uL (4.0-11.0) Red Blood Count 5.16 x10^6/uL (3.50-5.40) Hemoglobin 10.6 g/dL (12.0-15.5) L Hematocrit 33.4 % (36.0-47.0) L Mean Corpuscular Volume 65 fL (79-100) L Mean Corpuscular Hemoglobin 21 pg (25-35) L Mean Corpuscular Hemoglobin Concent 32 g/dL (31-37) Red Cell Distribution Width 20.8 % (11.5-14.5) H Platelet Count 248 x10^3/uL (140-400) Neutrophils (%) (Auto) 43 % (31-73) Lymphocytes (%) (Auto) 32 % (24-48) Monocytes (%) (Auto) 13 % (0-9) H Eosinophils (%) (Auto) 12 % (0-3) H Basophils (%) (Auto) 1 % (0-3) Neutrophils # (Auto) 2.2 x10^3/uL (1.8-7.7) Lymphocytes # (Auto) 1.7 x10^3/uL (1.0-4.8) Monocytes # (Auto) 0.7 x10^3/uL (0.0-1.1) Eosinophils # (Auto) 0.6 x10^3/uL (0.0-0.7) Basophils # (Auto) 0.0 x10^3/uL (0.0-0.2) Platelet Estimate Adequate (ADEQUATE) Hypochromasia Marked Anisocytosis Mod Microcytosis Mod Ovalocytes Occ Sodium Level 144 mmol/L (136-145) Potassium Level 3.3 mmol/L (3.5-5.1) L Chloride Level 107 mmol/L (98-107) Carbon Dioxide Level 30 mmol/L (21-32) Anion Gap 7 (6-14) Blood Urea Nitrogen 23 mg/dL (7-20) H Creatinine 1.1 mg/dL (0.6-1.0) H Estimated GFR (Cockcroft-Gault) 61.3 BUN/Creatinine Ratio 21 (6-20) H Glucose Level 169 mg/dL (70-99) H Calcium Level 9.6 mg/dL (8.5-10.1) Total Bilirubin 0.3 mg/dL (0.2-1.0) Aspartate Amino Transferase (AST) 23 U/L (15-37) Alanine Aminotransferase (ALT) 20 U/L (14-59) Alkaline Phosphatase 64 U/L (46-116) Troponin I Quantitative 0.017 ng/mL (0.000-0.055) < 0.017 ng/mL (0.000-0.055) < 0.017 ng/mL (0.000-0.055) Total Protein 7.6 g/dL (6.4-8.2) Albumin 3.7 g/dL (3.4-5.0) Albumin/Globulin Ratio 0.9 (1.0-1.7) L Magnesium Level 2.0 mg/dL (1.8-2.4) Laboratory Tests 03/30/19 04:25 Laboratory Tests 03/30/19 04:25 ECHOCARDIOGRAM ECHOCARDIOGRAM <Conclusion> Basal inferior and posterior wall hypokinesis. The Ejection Fraction is 45%. Transmitral Doppler flow pattern is Grade I-abnormal relaxation pattern. Doppler and Color-flow revealed mild mitral regurgitation. There is no evidence of significant pericardial effusion. DATE: 12/20/18 1559 HEART CATH HEART CATH Conclusion 1. Severe single-vessel coronary disease with chronic total occlusion involving the right coronary artery with right to right and [id number] collaterals 2. Akinetic posterobasal wall with ejection fraction estimated at 45%. Recommendations Medical Therapy DATE: 12/20/18 1705 ASSESSMENT/PLAN ASSESSMENT/PLAN 1. Pleuritic chest pain: trops nml no acute changes 2. CAD; severe single-vessel disease with SAFE TECHNICIAN of the RCA with right to right and [id number] collaterals 3. 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 HTN: controlled 5. Hypokalemia: replace 6. Dyslipidemia 7. GERD Recommendations 1. Continue with secondary prevention 2. Limited TTE and reeval EF 3. Replace K 4. DDIMER if + then will proceed with chest CTA THERON CABRAL MD 03/30/192043: CARDIAC CONSULT ASSESSMENT/PLAN ASSESSMENT/PLAN Patient seen and examined. Agree with GLOBAL SALES MANAGER's assessment and plan. CP very atypical and most probably pleuritic IL ruled out Recent echo showed normal LVF and cath showed SAFE TECHNICIAN RCA Continue current med regimen No further cardiac workup is indicated at this time Thank you for your consultation LAINEY FRIAS APRN Mar 30, 2019 12:23 THERON CABRAL MD Mar 30, 2019 20:44
[2019-03-30] MEDS: PREGABALIN 50 MG CAPSULE PO SCH ×2 (15:18→20:38)
[2019-03-30] MEDS: hydroCHLOROthiazide 25 MG TABLET PO SCH (15:19)
[2019-03-30] MEDS: amLODIPine BESYLATE 10 MG TABLET PO SCH (15:19)
[2019-03-30] MEDS: LOSARTAN POTASSIUM 50 MG TABLET. PO SCH (15:20)
[2019-03-30] MEDS: ISOSORBIDE MONONITRATE ER 30 MG TAB.ER.24H PO SCH (15:24)
[2019-03-30] MEDS ORDERED: IOHEXOL 350 MG/ML 100 ML VIAL. IV ONE (17:15)
[2019-03-30] MEDS ORDERED: CONTRAST GIVEN. MC PRN (17:15)
[2019-03-30 19:21] VITALS: BP 167/94
[2019-03-30] MEDS ORDERED: ATORVASTATIN CALCIUM 40 MG TABLET. PO SCH (21:00)
[2019-03-30 23:35] VITALS: BP 129/71
[2019-03-31 03:25] VITALS: BP 127/66
[2019-03-31] MEDS ORDERED: ACETAMINOPHEN 325 MG TABLET. PO PRN (05:45)
[2019-03-31] MEDS ORDERED: traMADol 50 MG TABLET PO PRN (05:45)
[2019-03-31] MEDS ORDERED: KETOROLAC 30 MG/ML VIAL. IM ONE (06:00)
--- NOTE | 2019-03-31 07:29 | PDOC ---
PROGRESS NOTES History of Present Illness History of Present Illness VTE Prophylaxis Ordered VTE Prophylaxis Devices: Yes VTE Pharmacological Prophylaxi: Yes Assessment/Plan Assessment/Plan CP in an adult at rest with neg trps x 2 and reassuring EKG HX hTN CAD, dyslipidemia - on meds- CPM MIld hypokal PLAN: OBS, cards consult CARdiac diet has been at ER level replace K PO x 1 full code D/C PLANNING 28 MIN Vitals Vitals Vital Signs Date Time Temp Pulse Resp B/P (MAP) Pulse Ox O2 Delivery O2 Flow Rate FiO2 03/31/19 03:25 98.3 64 18 127/66 (86) 92 Room Air 98.3 Physical Exam General: Alert, Oriented X3, Cooperative, No acute distress Heart: Regular rate, Normal S1, Normal S2 Lungs: Clear Abdomen: Soft, No tenderness Extremities: No clubbing, No cyanosis, No edema Skin: No breakdown, No significant lesion Labs LABS STATUS: ADM IN ORD. PHYSICIAN: LAINEY FRIAS APRN REASON: Dyspnea, cough, pleuritic CP, rule out PE PROCEDURE: CT ANGIOGRAPHY CHEST Examination: CT ANGIOGRAPHY CHEST History: Dyspnea and cough, breast cancer with right lumpectomy history Comparison/Correlation: None Findings: Axial images of the chest were obtained following IV contrast. Sagittal and coronal reformatted images were provided. Respiratory motion limits evaluation. Pulmonary arterial vasculature is unremarkable with no pulmonary arterial thromboembolic disease identified although motion minimally limits evaluation of distal branches. Mild cardiomegaly is evident. Paratracheal lymph node with short axis diameter 1.2 cm present. Right hilar lymph node with short axis diameter 1.5 cm noted. Multiple nonenlarged lymph nodes are also present about the precarinal region. Lymph nodes along the main pulmonary artery also are present with one measuring up to 1.1 cm diameter. There is no pulmonary nodule or mass. No infiltrate or pneumothorax. No pleural effusion. The tracheobronchial tree is unremarkable. Thoracic aorta is unremarkable. Right lumpectomy findings are present with dystrophic calcification at the upper inner aspect. Coronary arterial calcification is notable. Calcific involvement of the abdominal aortic branches is normal. Fatty infiltration of liver is noted. T11-12 severe disc space narrowing is present with endplate sclerosis. Impression: No pulmonary arterial thromboembolic disease. No infiltrate. Lymph nodes are again identified involving the right hilum and mediastinum similar to the prior exam. Coronary arterial and other arterial vascular calcification is notable. PQRS Compliance Statement: One or more of the following individualized dose reduction techniques were utilized for this examination: 1. Automated exposure control 2. Adjustment of the mA and/or kV according to patient size 3. Use of iterative reconstruction technique Electronically signed by: Arley Fajardo MD (03/31/2019 8:22 AM) [facility] DICTATED and SIGNED BY: ARLEY FAJARDO MD DATE: 03/31/19821 Laboratory Tests Test 03/30/19 11:05 Magnesium Level 2.0 mg/dL (1.8-2.4) Troponin I Quantitative < 0.017 ng/mL (0.000-0.055) Assessment and Plan Assessmemt and Plan Problems Medical Problems: (1) Chest pain Status: Acute (2) Hypokalemia Status: Acute (3) Systolic and diastolic CHF, chronic Status: Chronic Comment Review of Relevant I have reviewed the following items jacob (where applicable) has been applied. Labs Laboratory Tests Test 03/30/19 04:25 03/30/19 07:10 03/30/19 11:05 White Blood Count 5.2 x10^3/uL (4.0-11.0) Red Blood Count 5.16 x10^6/uL (3.50-5.40) Hemoglobin 10.6 g/dL (12.0-15.5) Hematocrit 33.4 % (36.0-47.0) Mean Corpuscular Volume 65 fL (79-100) Mean Corpuscular Hemoglobin 21 pg (25-35) Mean Corpuscular Hemoglobin Concent 32 g/dL (31-37) Red Cell Distribution Width 20.8 % (11.5-14.5) Platelet Count 248 x10^3/uL (140-400) Neutrophils (%) (Auto) 43 % (31-73) Lymphocytes (%) (Auto) 32 % (24-48) Monocytes (%) (Auto) 13 % (0-9) Eosinophils (%) (Auto) 12 % (0-3) Basophils (%) (Auto) 1 % (0-3) Neutrophils # (Auto) 2.2 x10^3/uL (1.8-7.7) Lymphocytes # (Auto) 1.7 x10^3/uL (1.0-4.8) Monocytes # (Auto) 0.7 x10^3/uL (0.0-1.1) Eosinophils # (Auto) 0.6 x10^3/uL (0.0-0.7) Basophils # (Auto) 0.0 x10^3/uL (0.0-0.2) Platelet Estimate Adequate (ADEQUATE) Hypochromasia Marked Anisocytosis Mod Microcytosis Mod Ovalocytes Occ D-Dimer (Priya) 0.83 ug/mlFEU (0.00-0.50) Sodium Level 144 mmol/L (136-145) Potassium Level 3.3 mmol/L (3.5-5.1) Chloride Level 107 mmol/L (98-107) Carbon Dioxide Level 30 mmol/L (21-32) Anion Gap 7 (6-14) Blood Urea Nitrogen 23 mg/dL (7-20) Creatinine 1.1 mg/dL (0.6-1.0) Estimated GFR (Cockcroft-Gault) 61.3 BUN/Creatinine Ratio 21 (6-20) Glucose Level 169 mg/dL (70-99) Calcium Level 9.6 mg/dL (8.5-10.1) Total Bilirubin 0.3 mg/dL (0.2-1.0) Aspartate Amino Transf (AST/SGOT) 23 U/L (15-37) Alanine Aminotransferase (ALT/SGPT) 20 U/L (14-59) Alkaline Phosphatase 64 U/L (46-116) Troponin I Quantitative 0.017 ng/mL (0.000-0.055) < 0.017 ng/mL (0.000-0.055) < 0.017 ng/mL (0.000-0.055) Total Protein 7.6 g/dL (6.4-8.2) Albumin 3.7 g/dL (3.4-5.0) Albumin/Globulin Ratio 0.9 (1.0-1.7) Magnesium Level 2.0 mg/dL (1.8-2.4) Laboratory Tests Test 03/30/19 11:05 Magnesium Level 2.0 mg/dL (1.8-2.4) Troponin I Quantitative < 0.017 ng/mL (0.000-0.055) Medications Current Medications Aspirin (Children'S Aspirin) 324 mg 1X ONCE PO ; Start 03/30/19 at 05:00; Stop 03/30/19 at 05:01; Status DC Nitroglycerin (Nitrostat) 0.4 mg PRN Q5MIN PRN SL CHEST PAIN Last administered on 03/30/19at 05:06; Start 03/30/19 at 04:45; Stop 03/30/19 at 09:36; Status DC Potassium Chloride (Klor-Con) 40 meq 1X ONCE PO Last administered on 03/30/19at 06:16; Start 03/30/19 at 06:30; Stop 03/30/19 at 06:31; Status DC Amlodipine Besylate (Norvasc) 10 mg DAILY PO Last administered on 03/30/19at 15:19; Start 03/30/19 at 10:00 Aspirin (Children'S Aspirin) 81 mg DAILY PO Last administered on 03/30/19at 09:22; Start 03/30/19 at 09:00 Atorvastatin Calcium (Lipitor) 40 mg QHS PO Last administered on 03/30/19at 20:38; Start 03/30/19 at 21:00 Isosorbide Mononitrate (Imdur) 60 mg DAILY PO Last administered on 03/30/19at 15:24; Start 03/30/19 at 10:00 Metoprolol Succinate (Toprol Xl) 25 mg DAILY PO Last administered on 03/30/19at 09:22; Start 03/30/19 at 09:00 Non-Formulary Medication (Ciclopirox ) 1 kwasi BID TP ; Start 03/30/19 at 09:00; Stop 03/31/19 at 07:10; Status DC Non-Formulary Medication (Isosorbide Mononitrate (Isosorbide Mononitrate Er)) 1 tab DAILY PO ; Start 03/30/19 at 09:00; Status UNV Losartan Potassium (Cozaar) 100 mg DAILY PO Last administered on 03/30/19at 15:20; Start 03/30/19 at 10:00 Pregabalin (Lyrica) 100 mg BID PO Last administered on 03/30/19at 20:38; Start 03/30/19 at 09:30 Morphine Sulfate (Morphine Sulfate) 2 mg PRN Q2HR PRN IV PAIN; Start 03/30/19 at 09:00 Nitroglycerin (Nitrostat) 0.4 mg PRN Q5MIN PRN SL CHEST PAIN; Start 03/30/19 at 09:00 Potassium Chloride (Klor-Con) 40 meq 1X ONCE PO ; Start 03/30/19 at 09:00; Stop 03/30/19 at 09:09; Status DC Hydrochlorothiazide (Hydrodiuril) 25 mg DAILY PO Last administered on 03/30/19at 15:19; Start 03/30/19 at 10:00 Iohexol (Omnipaque 350 Mg/ml) 100 ml 1X ONCE IV ; Start 03/30/19 at 17:15; Stop 03/30/19 at 17:16; Status DC Info (CONTRAST GIVEN -- Rx MONITORING) 1 each PRN DAILY PRN MC SEE COMMENTS; Start 03/30/19 at 17:15; Stop 04/01/19 at 17:14 Ketorolac Tromethamine (Toradol 30mg Vial) 30 mg 1X ONCE IM Last administered on 03/31/19at 05:51; Start 03/31/19 at 06:00; Stop 03/31/19 at 06:02; Status DC Tramadol HCl (Ultram) 50 mg PRN Q4HRS PRN PO MODERATE PAIN 4-6; Start 03/31/19 at 05:45 Acetaminophen (Tylenol) 650 mg PRN Q4HRS PRN PO MILD PAIN 1-3; Start 03/31/19 at 05:45 Active Scripts Active Isosorbide Mononitrate Er (Isosorbide Mononitrate) 60 Mg Tab.er.24h 1 Tab PO DAILY Lipitor (Atorvastatin Calcium) 40 Mg Tablet 1 Tab PO QHS Isosorbide Mononitrate Er (Isosorbide Mononitrate) 30 Mg Tab.er.24h 1 Tab PO DAILY Reported Aspirin 81 Mg Tab.chew 1 Tab PO DAILY Ciclopirox 6.6 Ml Solution 1 Kwasi TP BID Toprol Xl (Metoprolol Succinate) 25 Mg Tab.er.24h 1 Tab PO DAILY Amlodipine Besylate 10 Mg Tablet 10 Mg PO DAILY Lyrica (Pregabalin) 100 Mg Capsule 1 Cap PO BID Losartan-Hctz 100-25 Mg Tab (Losartan/Hydrochlorothiazide) 1 Each Tablet 1 Tab PO DAILY Vitals/I & O Vital Sign - Last 24 Hours 03/30/19 03/30/19 03/30/19 03/30/19 09:18 09:22 10:00 10:30 Pulse 62 74 68 66 Resp 20 B/P (MAP) 145/102 (116) 145/102 153/88 (109) 144/87 (106) Pulse Ox 95 93 93 O2 Delivery Room Air Room Air Room Air 03/30/19 03/30/19 03/30/19 03/30/19 13:31 15:19 15:20 15:24 Pulse 66 66 66 B/P (MAP) 144/87 144/87 144/87 O2 Delivery Room Air 03/30/19 03/30/19 03/31/19 19:21 23:35 03:25 Temp 97.5 97.7 98.3 97.5 97.7 98.3 Pulse 74 71 64 Resp 18 18 18 B/P (MAP) 167/94 (118) 129/71 (90) 127/66 (86) Pulse Ox 95 92 92 O2 Delivery Room Air Room Air Room Air Intake and Output 03/30/19 03/30/19 03/31/19 15:00 23:00 07:00 Intake Total 200 ml Output Total 900 ml 1010 ml Balance -900 ml -810 ml SERGEI SOLIS MD Mar 31, 2019 07:29
[2019-03-31 07:56] VITALS: BP 141/84
--- NOTE | 2019-03-31 08:26 | RAD ---
Examination: CT ANGIOGRAPHY CHEST History: Dyspnea and cough, breast cancer with right lumpectomy history Comparison/Correlation: None Findings: Axial images of the chest were obtained following IV contrast. Sagittal and coronal reformatted images were provided. Respiratory motion limits evaluation. Pulmonary arterial vasculature is unremarkable with no pulmonary arterial thromboembolic disease identified although motion minimally limits evaluation of distal branches. Mild cardiomegaly is evident. Paratracheal lymph node with short axis diameter 1.2 cm present. Right hilar lymph node with short axis diameter 1.5 cm noted. Multiple nonenlarged lymph nodes are also present about the precarinal region. Lymph nodes along the main pulmonary artery also are present with one measuring up to 1.1 cm diameter. There is no pulmonary nodule or mass. No infiltrate or pneumothorax. No pleural effusion. The tracheobronchial tree is unremarkable. Thoracic aorta is unremarkable. Right lumpectomy findings are present with dystrophic calcification at the upper inner aspect. Coronary arterial calcification is notable. Calcific involvement of the abdominal aortic branches is normal. Fatty infiltration of liver is noted. T11-12 severe disc space narrowing is present with endplate sclerosis. Impression: No pulmonary arterial thromboembolic disease. No infiltrate. Lymph nodes are again identified involving the right hilum and mediastinum similar to the prior exam. Coronary arterial and other arterial vascular calcification is notable. PQRS Compliance Statement: One or more of the following individualized dose reduction techniques were utilized for this examination: 1. Automated exposure control 2. Adjustment of the mA and/or kV according to patient size 3. Use of iterative reconstruction technique Electronically signed by: Arley Mott MD (03/31/2019 8:22 AM) [facility]
[2019-03-31] MEDS: LOSARTAN POTASSIUM 50 MG TABLET. PO SCH (08:43)
[2019-03-31] MEDS: hydroCHLOROthiazide 25 MG TABLET PO SCH (08:43)
[2019-03-31] MEDS: METOPROLOL SUCC 24HR ER 25 MG TAB.ER.24H. PO SCH (08:43)
[2019-03-31] MEDS: amLODIPine BESYLATE 10 MG TABLET PO SCH (08:44)
[2019-03-31] MEDS: PREGABALIN 50 MG CAPSULE PO SCH (08:44)
[2019-03-31] MEDS: ASPIRIN CHEWABLE 81 MG TABLET. PO SCH (08:44)
[2019-03-31] MEDS: ISOSORBIDE MONONITRATE ER 30 MG TAB.ER.24H PO SCH (08:47)
[2019-03-31] MEDS ORDERED: IV NORMAL SALINE 1000ML BAG 500 ML IV ONE (09:00)
[2019-03-31 11:00] VITALS: BP 130/78
--- NOTE | 2019-03-31 12:46 | PDOC3 ---
Discharge Summary Date of Admission: Mar 30, 2019 Date of Discharge: Mar 31, 2019 Follow-Up: 3-5 days Admitting Diagnosis comment: Assessment/Plan Assessment/Plan CP in an adult at rest with neg trps x 2 and reassuring EKG HX hTN CAD, dyslipidemia - on meds- CPM MIld hypokal PLAN: OBS, cards consult CARdiac diet has been at ER level replace K PO x 1 full code D/C PLANNING 28 MIN Vitals Vitals Vital Signs Date Time Temp Pulse Resp B/P (MAP) Pulse Ox O2 Delivery O2 Flow Rate FiO2 03/31/19 03:25 98.3 64 18 127/66 (86) 92 Room Air 98.3 Physical Exam General: Alert, Oriented X3, Cooperative, No acute distress Heart: Regular rate, Normal S1, Normal S2 Lungs: Clear Abdomen: Soft, No tenderness Extremities: No clubbing, No cyanosis, No edema Skin: No breakdown, No significant lesion Labs LABS STATUS: ADM IN ORD. PHYSICIAN: LAINEY FRIAS APRN REASON: Dyspnea, cough, pleuritic CP, rule out PE PROCEDURE: CT ANGIOGRAPHY CHEST Examination: CT ANGIOGRAPHY CHEST History: Dyspnea and cough, breast cancer with right lumpectomy history Comparison/Correlation: None Findings: Axial images of the chest were obtained following IV contrast. Sagittal and coronal reformatted images were provided. Respiratory motion limits evaluation. Pulmonary arterial vasculature is unremarkable with no pulmonary arterial thromboembolic disease identified although motion minimally limits evaluation of distal branches. Mild cardiomegaly is evident. Paratracheal lymph node with short axis diameter 1.2 cm present. Right hilar lymph node with short axis diameter 1.5 cm noted. Multiple nonenlarged lymph nodes are also present about the precarinal region. Lymph nodes along the main pulmonary artery also are present with one measuring up to 1.1 cm diameter. There is no pulmonary nodule or mass. No infiltrate or pneumothorax. No pleural effusion. The tracheobronchial tree is unremarkable. Thoracic aorta is unremarkable. Right lumpectomy findings are present with dystrophic calcification at the upper inner aspect. Coronary arterial calcification is notable. Calcific involvement of the abdominal aortic branches is normal. Fatty infiltration of liver is noted. T11-12 severe disc space narrowing is present with endplate sclerosis. Impression: No pulmonary arterial thromboembolic disease. No infiltrate. Lymph nodes are again identified involving the right hilum and mediastinum similar to the prior exam. Coronary arterial and other arterial vascular calcification is notable. FINAL DIAGNOSIS Problems Medical Problems: (1) Chest pain Status: Acute (2) Hypokalemia Status: Acute (3) Systolic and diastolic CHF, chronic Status: Chronic Brief Hospital Course Ms. Sánchez is a 59 old [sex] who presented with [ATYPICAL CHEST PAIN ] CONDITION AT DISCHARGE: Improved Discharge Medications Current Medications Aspirin (Children'S Aspirin) 324 mg 1X ONCE PO ; Start 03/30/19 at 05:00; Stop 03/30/19 at 05:01; Status DC Nitroglycerin (Nitrostat) 0.4 mg PRN Q5MIN PRN SL CHEST PAIN Last administered on 03/30/19at 05:06; Start 03/30/19 at 04:45; Stop 03/30/19 at 09:36; Status DC Potassium Chloride (Klor-Con) 40 meq 1X ONCE PO Last administered on 03/30/19at 06:16; Start 03/30/19 at 06:30; Stop 03/30/19 at 06:31; Status DC Amlodipine Besylate (Norvasc) 10 mg DAILY PO Last administered on 03/30/19at 15:19; Start 03/30/19 at 10:00; Stop 03/31/19 at 09:55; Status DC Aspirin (Children'S Aspirin) 81 mg DAILY PO Last administered on 03/31/19at 08:44; Start 03/30/19 at 09:00 Atorvastatin Calcium (Lipitor) 40 mg QHS PO Last administered on 03/30/19at 20:38; Start 03/30/19 at 21:00 Isosorbide Mononitrate (Imdur) 60 mg DAILY PO Last administered on 03/31/19at 08:47; Start 03/30/19 at 10:00 Metoprolol Succinate (Toprol Xl) 25 mg DAILY PO Last administered on 03/31/19at 08:43; Start 03/30/19 at 09:00 Non-Formulary Medication (Ciclopirox ) 1 kwasi BID TP ; Start 03/30/19 at 09:00; Stop 03/31/19 at 07:10; Status DC Non-Formulary Medication (Isosorbide Mononitrate (Isosorbide Mononitrate Er)) 1 tab DAILY PO ; Start 03/30/19 at 09:00; Status UNV Losartan Potassium (Cozaar) 100 mg DAILY PO Last administered on 03/31/19at 08:4 3; Start 03/30/19 at 10:00 Pregabalin (Lyrica) 100 mg BID PO Last administered on 03/31/19at 08:44; Start 03/30/19 at 09:30 Morphine Sulfate (Morphine Sulfate) 2 mg PRN Q2HR PRN IV PAIN; Start 03/30/19 at 09:00 Nitroglycerin (Nitrostat) 0.4 mg PRN Q5MIN PRN SL CHEST PAIN; Start 03/30/19 at 09:00 Potassium Chloride (Klor-Con) 40 meq 1X ONCE PO ; Start 03/30/19 at 09:00; Stop 03/30/19 at 09:09; Status DC Hydrochlorothiazide (Hydrodiuril) 25 mg DAILY PO Last administered on 03/31/19at 08:43; Start 03/30/19 at 10:00 Iohexol (Omnipaque 350 Mg/ml) 100 ml 1X ONCE IV ; Start 03/30/19 at 17:15; Stop 03/30/19 at 17:16; Status DC Info (CONTRAST GIVEN -- Rx MONITORING) 1 each PRN DAILY PRN MC SEE COMMENTS; Start 03/30/19 at 17:15; Stop 04/01/19 at 17:14 Ketorolac Tromethamine (Toradol 30mg Vial) 30 mg 1X ONCE IM Last administered on 03/31/19at 05:51; Start 03/31/19 at 06:00; Stop 03/31/19 at 06:02; Status DC Tramadol HCl (Ultram) 50 mg PRN Q4HRS PRN PO MODERATE PAIN 4-6; Start 03/31/19 at 05:45 Acetaminophen (Tylenol) 650 mg PRN Q4HRS PRN PO MILD PAIN 1-3; Start 03/31/19 at 05:45 Sodium Chloride 500 ml @ 100 mls/hr 1X ONCE IV Last administered on 03/31/19at 10:40; Start 03/31/19 at 09:00; Stop 03/31/19 at 13:59 Amlodipine Besylate (Norvasc) 10 mg QHS PO ; Start 03/31/19 at 21:00 Active Scripts Active Isosorbide Mononitrate Er (Isosorbide Mononitrate) 60 Mg Tab.er.24h 1 Tab PO DAILY Lipitor (Atorvastatin Calcium) 40 Mg Tablet 1 Tab PO QHS Isosorbide Mononitrate Er (Isosorbide Mononitrate) 30 Mg Tab.er.24h 1 Tab PO DAILY Reported Aspirin 81 Mg Tab.chew 1 Tab PO DAILY Ciclopirox 6.6 Ml Solution 1 Kwasi TP BID Toprol Xl (Metoprolol Succinate) 25 Mg Tab.er.24h 1 Tab PO DAILY Amlodipine Besylate 10 Mg Tablet 10 Mg PO DAILY Lyrica (Pregabalin) 100 Mg Capsule 1 Cap PO BID Losartan-Hctz 100-25 Mg Tab (Losartan/Hydrochlorothiazide) 1 Each Tablet 1 Tab PO DAILY Vital Signs Vital Signs Date Time Temp Pulse Resp B/P (MAP) Pulse Ox O2 Delivery O2 Flow Rate FiO2 03/31/19 11:00 98.1 55 18 130/78 (95) 93 Room Air 98.1 Labs Laboratory Tests Test 03/30/19 04:25 03/30/19 07:10 03/30/19 11:05 White Blood Count 5.2 x10^3/uL (4.0-11.0) Red Blood Count 5.16 x10^6/uL (3.50-5.40) Hemoglobin 10.6 g/dL (12.0-15.5) Hematocrit 33.4 % (36.0-47.0) Mean Corpuscular Volume 65 fL (79-100) Mean Corpuscular Hemoglobin 21 pg (25-35) Mean Corpuscular Hemoglobin Concent 32 g/dL (31-37) Red Cell Distribution Width 20.8 % (11.5-14.5) Platelet Count 248 x10^3/uL (140-400) Neutrophils (%) (Auto) 43 % (31-73) Lymphocytes (%) (Auto) 32 % (24-48) Monocytes (%) (Auto) 13 % (0-9) Eosinophils (%) (Auto) 12 % (0-3) Basophils (%) (Auto) 1 % (0-3) Neutrophils # (Auto) 2.2 x10^3/uL (1.8-7.7) Lymphocytes # (Auto) 1.7 x10^3/uL (1.0-4.8) Monocytes # (Auto) 0.7 x10^3/uL (0.0-1.1) Eosinophils # (Auto) 0.6 x10^3/uL (0.0-0.7) Basophils # (Auto) 0.0 x10^3/uL (0.0-0.2) Platelet Estimate Adequate (ADEQUATE) Hypochromasia Marked Anisocytosis Mod Microcytosis Mod Ovalocytes Occ D-Dimer (Priya) 0.83 ug/mlFEU (0.00-0.50) Sodium Level 144 mmol/L (136-145) Potassium Level 3.3 mmol/L (3.5-5.1) Chloride Level 107 mmol/L (98-107) Carbon Dioxide Level 30 mmol/L (21-32) Anion Gap 7 (6-14) Blood Urea Nitrogen 23 mg/dL (7-20) Creatinine 1.1 mg/dL (0.6-1.0) Estimated GFR (Cockcroft-Gault) 61.3 BUN/Creatinine Ratio 21 (6-20) Glucose Level 169 mg/dL (70-99) Calcium Level 9.6 mg/dL (8.5-10.1) Total Bilirubin 0.3 mg/dL (0.2-1.0) Aspartate Amino Transf (AST/SGOT) 23 U/L (15-37) Alanine Aminotransferase (ALT/SGPT) 20 U/L (14-59) Alkaline Phosphatase 64 U/L (46-116) Troponin I Quantitative 0.017 ng/mL (0.000-0.055) < 0.017 ng/mL (0.000-0.055) < 0.017 ng/mL (0.000-0.055) Total Protein 7.6 g/dL (6.4-8.2) Albumin 3.7 g/dL (3.4-5.0) Albumin/Globulin Ratio 0.9 (1.0-1.7) Magnesium Level 2.0 mg/dL (1.8-2.4) Allergies Allergies Coded Allergies Type Severity Reaction Last Updated Verified Penicillins Allergy Intermediate Hives 12/21/18 Yes Disposition/Orders: D/C to Home SERGEI SOLIS MD Mar 31, 2019 12:46
--- NOTE | 2019-03-31 12:48 | DISCH ---
DISCHARGE INSTRUCTIONS Condition on Discharge Condition on Discharge: Stable Activity After Discharge Activity Instructions for Disc: Other, see below Lifting Instructions after Dis: No heavy lifting, No pulling or pushing, Add. restrict see below Driving Instructions after Dis: Do not drive today, Other, see below Weight Bearing Status after Di: Other, see below Diet after Discharge Diet after Discharge: Cardiac, No Added Salt Diet Texture: Regular Liquid Texture: Thin Liquid Checks after Discharge Checks after discharge: Check blood press - daily, Check blood sugar, ac/hs, Check your Temp as needed, Weigh Yourself Daily Contacting the DR. after DC Call your doctor for: If your condition worsens Treatment/Equipment after DC Adaptive Equipment Issued: None SERGEI SOLIS MD Mar 31, 2019 12:48
[2019-03-31] MEDS ORDERED: POTASSIUM CHLORIDE 20 MEQ TABLET.ER. PO ONE (13:30)
--- NOTE | 2019-03-31 13:54 | CARD ---
MR#: [id number] Date of Study: 03/30/2019 Ordering Physician: LAINEY FRIAS, Referring Physician: LAINEY FRIAS, Tech: Genevieve Ramirez [facility] APPROVED REPORT EXAM: LIMITED Two-dimensional and M-mode echocardiogram. Other Information Quality : GoodHR: 78bpm Rhythm : Other INDICATION Eval LVEF 2D DIMENSIONS RVDd3.4 (2.9-3.5cm)Left Atrium(2D)3.6 (1.6-4.0cm) IVSd1.4 (0.7-1.1cm)LVDd5.1 (3.9-5.9cm) PWd1.2 (0.7-1.1cm)LVDs4.0 (2.5-4.0cm) FS (%) 22.7 %SV57.0 ml LVEF(%)45.4 (>50%) M-Mode DIMENSIONS IVSd1.53 (0.7-1.1cm)LVDd5.04 (4.0-5.6cm) PWd1.54 (0.7-1.1cm)FS (%) 24 % LVDs3.82 (2.0-3.8cm)ESV(Teich)62.8 ml LVEF(%)48 (>50%) LEFT VENTRICLE The left ventricle is normal size. There is mild to moderate concentric left ventricular hypertrophy. Left ventricle systolic function is low normal. The Ejection Fraction is 50%. RIGHT VENTRICLE The right ventricle is normal size. There is normal right ventricular wall thickness. The right ventr icular systolic function is normal. ATRIA The left atrium size is normal. The right atrium size is normal. The interatrial septum is intact wit h no evidence for an atrial septal defect or patent foramen ovale as noted on 2-D or Doppler imaging. GREAT VESSELS The aortic root is normal in size. The ascending aorta is normal in size. The IVC is normal in size a nd collapses >50% with inspiration. PERICARDIAL EFFUSION There is no evidence of significant pericardial effusion. Critical Notification Critical Value: No <Conclusion> Limited echo to evaluate LV function. Left ventricle systolic function is low normal. The Ejection Fraction is 50%. There is no evidence of significant pericardial effusion. Signed by : Milind Aguirre, Electronically Approved : 03/30/2019 15:27:28
[2019-03-31 15:39] VITALS: BP 131/83
--- NOTE | 2019-03-31 16:43 | PDOC ---
CARDIO Progress Notes Date and Time Date of Service 03/31/2019 Time of Evaluation 1030 Subjective Subjective: No Chest Pain, No shortness of breath, No Palpitations Vitals Vitals Vital Signs Date Time Temp Pulse Resp B/P (MAP) Pulse Ox O2 Delivery O2 Flow Rate FiO2 03/31/19 15:39 98.1 73 16 131/83 (99) 93 Room Air 98.1 Weight Weight [ ] Input and Output Intake and Output Intake and Output 03/31/19 07:00 Intake Total 200 ml Output Total 1910 ml Balance -1710 ml Intake Oral 200 ml Output Urine Total 1910 ml Physical Exam HEENT: Neck Supple W Full Motion Chest: Symmetric LUNGS: Clear to Auscultation Heart: S1S2, RRR (SR) Abdomen: Soft N/T Extremities: No Calf Tenderness Neurology: alert, oriented, follow commands Assessment Assessment 1. Pleuritic chest pain: trops nml no acute changes. Likely from couging/bronchitis. CTA negative for PE 2. CAD; severe single-vessel disease with DEPUTY CLERK OF COURT of the RCA with right to right and [id number] collaterals 3. 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 HTN: controlled 5. Hypokalemia: replace 6. Dyslipidemia 7. GERD Recommendations 1. Continue with secondary prevention 2. Follow up in office next month as scheduled 3. November DC per cardiac standpoint LAINEY FRIAS APRN Mar 31, 2019 16:43
--- NOTE | 2019-03-31 18:20 | NUR ---
Discharge Note: VICENTE [facility]ON [facility] Discharge instructions and discharge home medications reviewed with patient and a copy given. All questions have been answered and understanding verbalized. The following instructions and handouts were given: Handout on chest pain, troponin, hypertension. Continue home meds as instructed. Follow up with PCP as needed. 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 Watch out for worsening of symptoms. Discontinued lines and drains: peripheral IV intact, patient tolerated removal, no complications noted. Patient discharged to home with self-care via wheelchair accompanied by family members at 1815.
[2019-03-31] MEDS ORDERED: ONDANSETRON PF 4 MG/2 ML VIAL. IVP PRN (18:45)
[2019-03-31] MEDS ORDERED: diphenhydrAMINE HCL 25 MG CAPSULE PO PRN (18:45)
[2019-03-31] MEDS ORDERED: amLODIPine BESYLATE 10 MG TABLET PO SCH (21:00)
== END 2019-03-31 18:05 | disposition home or self-care (01) ==
LOC: ER 04:15 → ED HOLD 08:10 → 6 SOUTH 10:51
PROVIDERS: ADMIT Internal Medicine; ATTEND Internal Medicine
DX: R07.89 Other chest pain (principal); K21.9 Gastro-esophageal reflux disease without esophagitis; E11.42 Type 2 diabetes mellitus with diabetic polyneuropathy; M19.90 Unspecified osteoarthritis, unspecified site; E78.5 Hyperlipidemia, unspecified; C50.911 Malignant neoplasm of unspecified site of right female breast; E87.6 Hypokalemia; I50.42 Chronic combined systolic (congestive) and diastolic (congestive) heart failure; I11.0 Hypertensive heart disease with heart failure; Z85.3 Personal history of malignant neoplasm of breast; I25.10 Atherosclerotic heart disease of native coronary artery without angina pectoris; I25.82 Chronic total occlusion of coronary artery; Z90.710 Acquired absence of both cervix and uterus; Z82.49 Family history of ischemic heart disease and other diseases of the circulatory system
CPT/HCPCS: 36415; 71045; 71275; 80053; 83735; 84484; 85025; 85379; 93005; 93308; 96372; 99284; G0378; J1885; J7030; G0379

== ENCOUNTER → 2020-04-19 | Outpatient (CLI) | payer OTHER ==
[2019-06-20 15:00] VITALS: BP 127/76
[~2020-04-19] MED LIST changes: +AMLO-187 PO; -AMLO10TA8 PO; +FURO-69 PO; +GLYB5TAB3 PO; +INSU100I13 SQ; +MELO7.5T29 PO; +METF500T16 PO
--- NOTE | 2020-04-19 10:28 | RAD ---
MR#: [id number] Date of Study: 04/19/2020 Ordering Physician: THERON CABRAL, Referring Physician: THERON CABRAL, Tech: Yari Caruso, NICK, LILIBETHT, RTR APPROVED REPORT Patient Location : OUT-PATIENT Indications Lower Extremity Edema : Bilateral Findings Bilateral greater and lesser saphenous veins were evaluated for reflux. The bilateral lesser saphenous veins are negative for reflux. A left-sided complex Garibay's cyst is noted measuring 6 x 4 x 1 cm. Bilateral greater saphenous veins are negative for reflux. No obvious evidence of any thrombosis on limited images. Critical Notification Critical Value: No <Conclusion> 1. Negative for reflux in the bilateral greater and lesser saphenous veins 2. Left-sided complex Garibay's cyst measuring approximately 6 x 4 x 1 cm Signed by : Chaz Patel, Electronically Approved : 04/19/2020 10:27:55
== END ==
LOC: US 08:57
PROVIDERS: ATTEND Internal Medicine Cardiovascular Disease
DX: R60.0 Localized edema (principal); M71.22 Synovial cyst of popliteal space [Baker], left knee
CPT/HCPCS: 93970

== ENCOUNTER → 2020-11-04 | Outpatient (CLI) | payer OTHER ==
[2019-06-20 15:00] VITALS: BP 127/76
[~2020-11-04] MED LIST changes: -ISOS30TA4 PO; +ISOS30TA68 PO; -ISOS60TA2 PO; +ISOS60TA55 PO
--- NOTE | 2020-11-04 16:14 | KCIC ---
Examination: MRI of the right shoulder without contrast HISTORY: History of right shoulder pain, decreased range of motion COMPARISON: None available Technique: Multiplanar, multisequence MR imaging of the right shoulder performed without contrast. FINDINGS: The long head of the biceps tendon within the bicipital groove. The attachment of the long head the b iceps tendon to the superior labral anchor grossly appears intact. Moderate increased echogenicity identified in the subscapularis tendon, supraspinatus, infraspinatus tendon likely tendinosis. There is full-thickness tear of the supraspinatus, infraspinatus tendon wit h tendon retraction to the level of the humerus head and extension of fluid from shoulder joint and s ubacromial subdeltoid bursa. The visualized labrum grossly appears unremarkable Moderate degenerative changes acromioclavicular joint, glenohumeral joint. Acromion is type II. Mild obscuration of fat in the rotator interval. IMPRESSION: 1. Full-thickness tear of the supraspinatus, infraspinatus tendon with tendon retraction and extensi on of fluid from shoulder joint and subacromial subdeltoid bursa. 2. Moderate rotator cuff tendinosis. 3. Mild obscuration of fat in the rotator interval. Correlate for adhesive capsulitis. Electronically signed by: Jacobo Anderson MD (11/04/2020 4:12 PM) [id number]
== END ==
LOC: KCIC MRI 14:37
PROVIDERS: ATTEND Nurse Practitioner
DX: M19.011 Primary osteoarthritis, right shoulder (principal); M75.101 Unspecified rotator cuff tear or rupture of right shoulder, not specified as traumatic
CPT/HCPCS: 73221